=== PATIENT | female | born 1960 | race Caucasian/White ===

== ENCOUNTER → 2018-05-23 | Outpatient (CLI) | payer OTHER | LOC: FIMAGING 08:20 | PROVIDERS: ATTEND Advanced Practice Midwife | DX: Z12.31 Encounter for screening mammogram for malignant neoplasm of breast (principal) ==

== ENCOUNTER → 2018-07-17 | Outpatient (CLI) | payer OTHER | LOC: FIMAGING 09:40 | PROVIDERS: ATTEND Advanced Practice Midwife | DX: N60.01 Solitary cyst of right breast (principal) ==